=== PATIENT | male | born 1955 | race Caucasian/White ===

== ENCOUNTER 2021-07-11 08:14 | Day surgery (SDC) | payer BC, MEDICARE ==
[2021-07-10 08:56] VITALS: BMI 24.3
[~2021-07-11 08:14] MED LIST: LACTATED RINGERS 1,000 ML IV SCH; LIDOCAINE 1% (10MG/ML) FOR IV START INTRADERMA PRN
[2021-07-11 08:38] VITALS: TEMP 97.4
[2021-07-11 08:54] LABS: Glucose,Whole Blood 181 mg/dL (75-99)
[2021-07-11] MEDS ORDERED: LIDOCAINE 1% INJ 10MG/ML (20 ML MDV) ONE (09:28)
[2021-07-11] MEDS ORDERED: PROPOFOL 10 MG/ML 20 ML VIAL IV ONE (09:28)
--- NOTE | 2021-07-11 09:43 | P.PCN ---
Date of Procedure: 07/11/21 Procedure(s) Performed: BRIEF HISTORY: Patient is a 65-year-old pleasant male scheduled for an elective colonoscopy as a part of evaluation of positive cologuard. No prior history of colonoscopy. PROCEDURE PERFORMED: Colonoscopy. PREOPERATIVE DIAGNOSIS: Positive cologuard. IV sedation per Anesthesia. PROCEDURE: After informed consent was obtained, the patient, was brought into the endoscopy unit. IV sedation was administered by Anesthesia under continuous monitoring. Digital rectal examination was normal. Initially the Olympus CF-160 flexible video colonoscope was then inserted in the rectum, gradually advanced into the cecum without any difficulty. Careful examination was performed as the scope was gradually being withdrawn. Ileocecal valve and the appendiceal orifice were visualized and appeared normal. Prep was excellent. Mucosa of the cecum, ascending colon, transverse colon, descending colon, sigmoid colon, and rectum appeared normal. Retroflexion was performed in the rectum and no lesions were seen. The patient tolerated the procedure well. IMPRESSION: Normal-appearing colon from rectum to cecum with no evidence of colorectal neoplasia . RECOMMENDATIONS: Findings of this examination were discussed with the patient as well as his family. He was advised to have a repeat screening colonoscopy in 10 years.
[2021-07-11 09:58] VITALS: BP 107/67; PULSE 87; RESP 18
== END 2021-07-11 10:21 | disposition home or self-care (01) ==
LOC: ORWHC2ENDO 08:14
PROVIDERS: ATTEND Internal Medicine Gastroenterology
DX: R19.5 Other fecal abnormalities (principal)
CPT/HCPCS: 45378; J2001; J2704